=== PATIENT | female | born 1985 | race Caucasian/White ===

== ENCOUNTER → 2019-07-24 | Outpatient (CLI) | payer OTHER ==
[2019-07-24 09:11] LABS: THYROID STIMULATING HORMONE 1.89 uIU/ML (0.358-3.740)
[2019-07-24 09:23] LABS: ESTRADIOL 114.1 PG/ML
[2019-07-24 09:47] LABS: PROGESTERONE 75.78 NG/ML
== END ==
LOC: M LAB 08:01
PROVIDERS: ATTEND Obstetrics & Gynecology Reproductive Endocrinology
DX: E28.9 Ovarian dysfunction, unspecified (principal)

== ENCOUNTER → 2019-07-29 | Outpatient (CLI) | payer OTHER ==
[2019-07-29 10:21] LABS: PROGESTERONE 12.5 NG/ML
== END ==
LOC: M LAB 06:20
PROVIDERS: ATTEND Obstetrics & Gynecology Reproductive Endocrinology
DX: E28.9 Ovarian dysfunction, unspecified (principal)

== ENCOUNTER → 2019-08-01 | Outpatient (CLI) | payer OTHER ==
[2019-08-01 08:06] LABS: THYROID STIMULATING HORMONE 1.82 uIU/ML (0.358-3.740)
[2019-08-01 11:36] LABS: ESTRADIOL 85.3 PG/ML; PROGESTERONE 31.41 NG/ML
== END ==
LOC: M LAB 06:57
PROVIDERS: ATTEND Obstetrics & Gynecology Reproductive Endocrinology
DX: Z32.01 Encounter for pregnancy test, result positive (principal); Z3A.00 Weeks of gestation of pregnancy not specified

== ENCOUNTER → 2019-08-07 | Outpatient (CLI) | payer OTHER ==
[~2019-08-07] MED LIST: ESTR2TAB2; NALT50TA4 PO; PROG1CAP8; prenatal
[2019-08-07 07:44] LABS: THYROID STIMULATING HORMONE 1.95 uIU/ML (0.358-3.740)
--- NOTE | 2019-08-07 07:57 | REPVR ---
PROCEDURE INFORMATION: Exam: US First Trimester, Transabdominal and US Duplex Artery and Vein, Ovaries, Complete Exam date and time: 08/07/2019 7:19 AM Clinical history: 34 years old, female; Screening exam; Routine US, uterus; Additional info: after positive result TECHNIQUE: Imaging protocol: Real-time transabdominal obstetrical ultrasound of the maternal pelvis and a first trimester , less than 14 weeks 0 days, with image documentation. Real-time duplex ultrasound scan of the arterial and venous flow of the ovaries with B-mode, color Doppler flow and spectral waveform analysis, complete duplex. COMPARISON: No relevant prior studies available. FINDINGS: GESTATION: Gestation: Yolk sac is seen. pole is not detected. No heart rate is detected. Heart rate: See Gestation Finding. Placenta: Unremarkable. No subchorionic bleed. Amniotic fluid: Amniotic and chorionic fluid are normal for gestational age. BIOMETRY: Estimated gestational age: 5 week and 2 day gestation by mean sac diameter Mean sac diameter: Intrauterine gestational sac is seen with mean sac diameter of 0.53 cm corresponding to 5 weeks and 2 days gestation. MATERNAL: Uterus: The uterus measures 8.6 x 4.9 x 3.6 cm with no focal uterine mass is seen. Cervix: Unremarkable. Right adnexa: The right ovary measures 4.6 x 3.5 x 1.9 cm. Arterial blood flow seen to the right ovary with peak systolic velocity of 12.7 cm and resistive index of 0.51. 1.7 x 1.4 x 1.4 cm heterogeneous hypoechoic right ovarian lesion seen possibly hemorrhagic cyst. Left adnexa: The left ovary measures 3.4 x 3.5 x 2.9 cm. Arterial blood flow seen to the left ovary with peak systolic velocity of 14.5 cm/s and resistive index of 0.49. : A 1.8 x 1.3 by 1.2 cm hypoechoic follicle/cyst with surrounding vascularity seen possibly corpus luteal cyst. Intraperitoneal: No intraperitoneal free fluid. IMPRESSION: 1. Likely early intrauterine gestational sac with yolk sac seen but no pole or heart rate detected. 2. Mean sac diameter suggests 5 weeks and 2 day gestation. 3. Bilateral possibly hemorrhagic follicular cyst and/or corpus luteal cysts with no sonographic evidence of torsion. 4. Correlate with beta hCG level. Followup is suggested. Electronically signed by: Pedro Flynn On 08/07/2019 07:56:43 AM
[2019-08-07 09:42] LABS: ESTRADIOL 210.4 PG/ML; PROGESTERONE 17.94 NG/ML
== END ==
LOC: M LAB 06:28
PROVIDERS: ATTEND Obstetrics & Gynecology Reproductive Endocrinology
DX: Z32.01 Encounter for pregnancy test, result positive (principal); Z3A.01 Less than 8 weeks gestation of pregnancy

== ENCOUNTER 2019-08-09 22:16 | Emergency (ER) | payer OTHER ==
[~2019-08-09] VITALS: Ht 162.6 cm; Wt 57.7 kg
[2019-08-09 22:16] VITALS: BP 127/65
[2019-08-09] MEDS ORDERED: prenatal (22:25)
[2019-08-09] MEDS ORDERED: PROG1CAP8 (22:25)
[2019-08-09] MEDS ORDERED: ESTR2TAB2 (22:25)
[2019-08-09] MEDS ORDERED: NALT50TA4 PO (22:25)
[2019-08-09 22:54] LABS: BASO % 0.5 % (0.0-1.0); EOS # 0.1 10^3/uL (0.0-0.5); EOS % 1.3 % (0.0-3.0); HEMATOCRIT 39.9 % (36.0-47.0); LYMPH # 2.1 10^3/uL (1.5-5.0); LYMPH % 34.3 % (24.0-44.0); MEAN CORPUSCULAR HEMOGLOBIN 31.5 pg (27.0-33.0); MEAN CORPUSCULAR HGB CONC 35.1 g/dl (32.0-36.5); MEAN CORPUSCULAR VOLUME 89.7 fl (80.0-96.0); MONO # 0.6 10^3/uL (0.0-0.8); MONO % 9.1 % (0.0-5.0); NEUTROPHILS # 3.4 10^3/uL (1.5-8.5); NEUTROPHILS % 54.6 % (36.0-66.0); PLATELET COUNT, AUTOMATED 257 10^3/uL (150-450); RED BLOOD COUNT 4.45 10^6/uL (4.00-5.40); WHITE BLOOD COUNT 6.2 10^3/uL (4.0-10.0)
--- NOTE | 2019-08-09 23:37 | REPVR ---
PROCEDURE INFORMATION: Exam: US First Trimester, Transabdominal Exam date and time: 08/09/2019 10:47 PM Clinical history: 34 years old, female; Lmp or gestational age (in weeks): 07/01/2019; Other: Vaginal bleeding; ; Additional info: Cristina lucasd TECHNIQUE: Imaging protocol: Real-time transabdominal obstetrical ultrasound of the maternal pelvis and a first trimester , less than 14 weeks 0 days, with image documentation. COMPARISON: US GEOTHERMAL INSTALLER 08/07/2019 7:18 AM FINDINGS: GESTATION: Gestation: Gestational sac measuring 8.7 mm. pole is visualized. The exact visualized. Heart rate: No cardiac activity detectable. Placenta: Unremarkable. No subchorionic bleed. Amniotic fluid: Amniotic and chorionic fluid are normal for gestational age. BIOMETRY: Estimated gestational age: Estimated gestational age 5 weeks and 5 days. Estimated due date: Estimated due date 04/05/2020 MATERNAL: Uterus: 8.1 x 4.5 x 5.7 cm retroverted uterus. No masses. Small gestational sac. Cervix: Unremarkable. Right adnexa: Unremarkable. Left adnexa: Unremarkable. Intraperitoneal: No intraperitoneal free fluid. IMPRESSION: Intrauterine gestation with pole measuring 5 weeks and 5 days. Absence of cardiac activity, potentially failure versus too early, recommend followup. Electronically signed by: Lebron Terrell On 08/09/2019 23:37:08 PM
[2019-08-09 23:43] LABS: BLOOD UREA NITROGEN 13 MG/DL (7-18); CALCIUM LEVEL 8.8 MG/DL (8.5-10.1); CARBON DIOXIDE LEVEL 26 MEQ/L (21-32); CHLORIDE LEVEL 108 MEQ/L (98-107); GLOMERULAR FILTRATION RATE > 60.0 (>60); GLUCOSE, FASTING 92 MG/DL (70-100); HCG, SERUM QUANTITATIVE 7942 MIU/ML; POTASSIUM SERUM 4.1 MEQ/L (3.5-5.1); SODIUM LEVEL 140 MEQ/L (136-145)
== END 2019-08-10 00:11 | disposition home or self-care (01) ==
LOC: M ED 22:16
DX: O20.0 Threatened abortion (principal); O99.011 Anemia complicating pregnancy, first trimester; O99.341 Other mental disorders complicating pregnancy, first trimester; F90.9 Attention-deficit hyperactivity disorder, unspecified type; Z91.040 Latex allergy status; Z3A.01 Less than 8 weeks gestation of pregnancy; Z79.899 Other long term (current) drug therapy

== ENCOUNTER → 2019-08-14 | Outpatient (CLI) | payer OTHER ==
[2019-08-14 08:09] LABS: THYROID STIMULATING HORMONE 1.25 uIU/ML (0.358-3.740)
--- NOTE | 2019-08-14 08:17 | REPVR ---
PROCEDURE INFORMATION: Exam: US , Transvaginal Exam date and time: 08/14/2019 7:01 AM Clinical history: 34 years old, female; Screening exam; Other: Number of sac/fetus; ; Additional info: after positive results TECHNIQUE: Imaging protocol: Real-time transvaginal obstetrical ultrasound of the maternal pelvis and a first trimester with image documentation. Transvaginal imaging was used for better evaluation of the fetus and adnexa. COMPARISON: US OB 08/09/2019 10:48 PM FINDINGS: GESTATION: Gestation: Single live intrauterine corresponding with 6 weeks 0 days with estimated delivery of 04/08/20. pole identified measuring 0.4 cm. Gestational sac is measuring 9.3 mm. Heart rate: heart rate is 104 beats per minute. Placenta: No subchorionic hemmorhage. IMPRESSION: Single live intrauterine corresponding with 6 weeks 0 days with estimated delivery of 04/08/20. pole identified measuring 0.4 cm. Gestational sac is measuring 9.3 mm. No subchorionic hemmorhage. Electronically signed by: Swapna Burton On 08/14/2019 08:16:40 AM
[2019-08-14 09:22] LABS: ESTRADIOL 194.4 PG/ML; PROGESTERONE 34.31 NG/ML
== END ==
LOC: M RAD 06:14
PROVIDERS: ATTEND Obstetrics & Gynecology Reproductive Endocrinology
DX: Z32.01 Encounter for pregnancy test, result positive (principal)

== ENCOUNTER 2019-09-28 19:23 | Emergency (ER) | payer OTHER ==
[~2019-09-28] VITALS: Ht 162.6 cm; Wt 57.3 kg
[2019-09-28 20:00] LABS: BASO % 0.3 % (0.0-1.0); EOS # 0.1 10^3/uL (0.0-0.5); EOS % 0.9 % (0.0-3.0); HEMATOCRIT 40.7 % (36.0-47.0); HEMOGLOBIN 14.2 g/dl (12.0-15.5); LYMPH # 2.2 10^3/uL (1.5-5.0); LYMPH % 25.9 % (24.0-44.0); MEAN CORPUSCULAR HEMOGLOBIN 30.3 pg (27.0-33.0); MEAN CORPUSCULAR HGB CONC 34.9 g/dl (32.0-36.5); MONO # 0.6 10^3/uL (0.0-0.8); MONO % 6.5 % (0.0-5.0); NEUTROPHILS # 5.7 10^3/uL (1.5-8.5); NEUTROPHILS % 66.1 % (36.0-66.0); PLATELET COUNT, AUTOMATED 199 10^3/uL (150-450); RED BLOOD COUNT 4.68 10^6/uL (4.00-5.40); WHITE BLOOD COUNT 8.7 10^3/uL (4.0-10.0)
[2019-09-28] MEDS ORDERED: NS 1,000 ML IV ONE (20:15)
--- NOTE | 2019-09-28 20:35 | REPVR ---
PROCEDURE INFORMATION: Exam: US First Trimester, Transabdominal Exam date and time: 09/28/2019 7:58 PM Age: 34 years old Clinical history: Lmp or gestational age (in weeks): 12w 6d; Other: Vaginal bleeding; ; Additional info: Vag bleeding, 13 weeks preg TECHNIQUE: Imaging protocol: Real-time transabdominal obstetrical ultrasound of the maternal pelvis and a first trimester , less than 14 weeks 0 days, with image documentation. COMPARISON: TRANSVAGINAL US 08/14/2019 6:36 AM FINDINGS: GESTATION: Gestation: Single gestational sac in the uterus. Single fetus demonstrated within gestational sac. Brusly-rump length measures 6.5 cm. Heart rate: heart rate is 158 bpm. Placenta: Large subchorionic hemorrhage measures 8.6 x 1.2 x 3.4 cm. Placenta intrinsically unremarkable. Amniotic fluid: Amniotic and chorionic fluid are normal for gestational age. BIOMETRY: Estimated gestational age: Gestational age based on crown-rump length is 12 weeks 6 days versus 13 weeks 1 day using LMP of 06/28/2019. MATERNAL: Uterus: Unremarkable. Cervix: Unremarkable. Right adnexa: Unremarkable. Left adnexa: Unremarkable. Intraperitoneal: No intraperitoneal free fluid. IMPRESSION: 1. Large subchorionic hemorrhage measures 8.6 x 1.2 x 3.4 cm. 2. Otherwise unremarkable gestation at 12 weeks 6 days using ultrasound measurements versus 13 weeks 1 day based on LMP. Detailed structural survey can be performed between 19-20 weeks if clinically desired. Electronically signed by: Mian Williamson On 09/28/2019 20:33:22 PM
[2019-09-28 20:41] LABS: BLOOD UREA NITROGEN 10 MG/DL (7-18); CALCIUM LEVEL 8.9 MG/DL (8.5-10.1); CARBON DIOXIDE LEVEL 26 MEQ/L (21-32); CHLORIDE LEVEL 105 MEQ/L (98-107); CREATININE FOR GFR 0.79 MG/DL (0.55-1.30); GLOMERULAR FILTRATION RATE > 60.0 (>60); GLUCOSE, FASTING 104 MG/DL (70-100); HCG, SERUM QUANTITATIVE 70611 MIU/ML; POTASSIUM SERUM 3.7 MEQ/L (3.5-5.1); SODIUM LEVEL 140 MEQ/L (136-145)
[2019-09-28 23:14] LABS: HEMATOCRIT 35.3 % (36.0-47.0); HEMOGLOBIN 12.3 g/dl (12.0-15.5)
[2019-09-29] MEDS ORDERED: KEFL500C17 PO (00:04)
[2019-09-29 00:16] VITALS: BP 107/58
== END 2019-09-29 00:43 | disposition home or self-care (01) ==
LOC: M ED 19:23
DX: O20.0 Threatened abortion (principal); O26.891 Other specified pregnancy related conditions, first trimester; Z32.01 Encounter for pregnancy test, result positive; O20.8 Other hemorrhage in early pregnancy; Z3A.12 12 weeks gestation of pregnancy; Z87.59 Personal history of other complications of pregnancy, childbirth and the puerperium; Z79.899 Other long term (current) drug therapy; Z91.040 Latex allergy status

== ENCOUNTER → 2019-10-07 | Outpatient (CLI) | payer OTHER ==
[~2019-10-07] MED LIST changes: +KEFL500C17 PO
--- NOTE | 2019-10-07 15:21 | REP ---
Clinical: Follow-up large subchorionic hemorrhage. Comparison: 09/28/2019. Findings: A single live intrauterine is identified. Biometrical measurements correspond to 14 weeks 1 day gestational age with estimated date of delivery 04/05/2020. heart rate equals 150 beats per minute. The cervix is closed and measures 3.8 cm in length. Amniotic fluid volume is subjectively normal. A moderate posterior subchorionic hemorrhage measures 6.9 x 2.1 x 6.8 cm and is relatively similar to prior examination. Impression: 1. Single live early intrauterine at 14 weeks 1 day gestational age. Complete anatomical assessment should be performed at 90-20 weeks. 2. Moderate subchorionic hemorrhage similar to prior examination. Electronically Signed by Charles Verma MD 10/07/2019 03:11 P
== END ==
LOC: M RAD 14:27
PROVIDERS: ATTEND Advanced Practice Midwife
DX: O41.8X10 Other specified disorders of amniotic fluid and membranes, first trimester, not applicable or unspecified (principal); Z3A.14 14 weeks gestation of pregnancy

== ENCOUNTER → 2019-10-15 | Outpatient (CLI) | payer OTHER ==
[2019-10-15 13:57] LABS: BASO % 0.1 % (0.0-1.0); EOS % 0.6 % (0.0-3.0); HEMATOCRIT 39.8 % (36.0-47.0); HEMOGLOBIN 13.6 g/dl (12.0-15.5); LYMPH # 1.3 10^3/uL (1.5-5.0); LYMPH % 17.7 % (24.0-44.0); MEAN CORPUSCULAR HEMOGLOBIN 30.7 pg (27.0-33.0); MEAN CORPUSCULAR HGB CONC 34.2 g/dl (32.0-36.5); MEAN CORPUSCULAR VOLUME 89.8 fl (80.0-96.0); MONO # 0.5 10^3/uL (0.0-0.8); MONO % 6.4 % (0.0-5.0); NEUTROPHILS # 5.3 10^3/uL (1.5-8.5); NEUTROPHILS % 74.9 % (36.0-66.0); PLATELET COUNT, AUTOMATED 196 10^3/uL (150-450); RED BLOOD COUNT 4.43 10^6/uL (4.00-5.40); WHITE BLOOD COUNT 7.1 10^3/uL (4.0-10.0)
[2019-10-15 17:01] LABS: CHLAMYDIA DNA AMPLIFICATION NEGATIVE (NEGATIVE); GC DNA AMPLIFICATION NEGATIVE (NEGATIVE)
[2019-10-18 11:01] LABS: HEPATITIS C VIRUS ABY INDEX 0.2 INDEX (<0.8); HIV 1&2 SCREEN CENTAUR NEGATIVE (NEGATIVE); RUBELLA IgG QUALITATIVE IMMUNE (IMMUNE)
== END ==
LOC: M PLALAB 08:47
PROVIDERS: ATTEND Obstetrics & Gynecology
DX: O46.8X1 Other antepartum hemorrhage, first trimester (principal); Z3A.00 Weeks of gestation of pregnancy not specified

== ENCOUNTER → 2019-11-04 | Outpatient (CLI) | payer OTHER ==
--- NOTE | 2019-11-05 02:36 | REP ---
Clinical: Anatomical evaluation. Comparison: 10/07/2019 . Findings: Examination demonstrates a single live intrauterine in transverse (head to maternal right) presentation. motion is identified by technologist. Placenta is noted anterior and grade zero without evidence for placenta previa or abruption. Amniotic fluid volume is normal. Cervix measures 3.9 cm in length and appears closed. No evidence for nuchal cord. There is evidence for subchorionic hemorrhage as previously noted. Gestational age by LMP 18 weeks 3 days with REBECCA 04/15/2020 . Gestational age by current measurements 18 weeks 0 days with REBECCA 04/18/2020 . FHR equals 130 beats per minute. BPD 4.3 cm 19 weeks 0 days HC 15.4 cm 18 weeks 3 days AC 12.0 cm 17 weeks 5 days FL 2.4 cm 17 weeks 2 days HL 2.4 cm 17 weeks 3 days HC/AC ratio 1.28 Estimated weight 202 grams ( 46th percentile based on age by first ultrasound; 20th percentile based on age by LMP ). Anatomical assessment demonstrates normal structures including cranium, cerebellum/posterior fossa, lungs, four-chamber heart, diaphragm, stomach, cord insertion/three-vessel cord, kidneys/bladder, and extremities. Abnormal thoracic vertebral body suggesting hemivertebra cannot be excluded along with possibility of cleft lip (facial features are incompletely evaluated). Incomplete evaluation of the cord plexus, cavum, and cardiac ventricular outflow tracts are also noted. Impression: 1. Single live intrauterine in transverse lie demonstrating appropriate interval growth. 2. Anatomical limitations and questionable findings as noted above warrant reevaluation and follow-up. 3. Subchorionic hemorrhage again noted.
== END ==
LOC: M WHC 08:05
PROVIDERS: ATTEND Advanced Practice Midwife
DX: Z34.92 Encounter for supervision of normal pregnancy, unspecified, second trimester (principal)

== ENCOUNTER → 2019-11-05 | Outpatient (REF) | payer OTHER | LOC: M SFHCWAGY 16:50 | PROVIDERS: ATTEND Advanced Practice Midwife | DX: R30.0 Dysuria (principal) ==

== ENCOUNTER → 2021-06-15 | Outpatient (REF) | payer OTHER | LOC: M LAB REF 16:55 | PROVIDERS: ATTEND Family Medicine | DX: R10.2 Pelvic and perineal pain (principal); N76.0 Acute vaginitis ==

== ENCOUNTER → 2022-04-15 | Outpatient (CLI) | payer OTHER ==
[~2022-04-15] MED LIST changes: -ESTR2TAB2; +ESTR2TAB3
[2022-04-15 10:11] LABS: BASO % 0.4 % (0.0-1.0); EOS # 0.1 10^3/uL (0.0-0.5); EOS % 1.5 % (0.0-3.0); HEMATOCRIT 39.2 % (36.0-47.0); HEMOGLOBIN 13.1 g/dl (12.0-15.5); LYMPH # 1.2 10^3/uL (1.5-5.0); MEAN CORPUSCULAR HEMOGLOBIN 29.1 pg (27.0-33.0); MEAN CORPUSCULAR HGB CONC 33.4 g/dl (32.0-36.5); MEAN CORPUSCULAR VOLUME 87.1 fl (80.0-96.0); MONO # 0.4 10^3/uL (0.0-0.8); MONO % 8.7 % (2.0-8.0); NEUTROPHILS # 2.9 10^3/uL (1.5-8.5); NEUTROPHILS % 62.2 % (36.0-66.0); PLATELET COUNT, AUTOMATED 205 10^3/uL (150-450); WHITE BLOOD COUNT 4.6 10^3/uL (4.0-10.0)
[2022-04-15 11:08] LABS: ALBUMIN 4.4 GM/DL (3.2-5.2); ALT/SGPT 23 U/L (12-78); BLOOD UREA NITROGEN 11 MG/DL (7-18); CALCIUM LEVEL 9.3 MG/DL (8.5-10.1); CARBON DIOXIDE LEVEL 28 MEQ/L (21-32); CHLORIDE LEVEL 106 MEQ/L (98-107); CREATININE FOR GFR 0.95 MG/DL (0.55-1.30); FREE T4 1.16 NG/DL (0.76-1.46); GLOMERULAR FILTRATION RATE > 60.0 (>60); GLUCOSE, FASTING 76 MG/DL (70-100); POTASSIUM SERUM 4.3 MEQ/L (3.5-5.1); SODIUM LEVEL 139 MEQ/L (136-145)
[2022-04-15 11:40] LABS: TOTAL 25(OH) VITAMIN D 26.2 NG/ML (30.0-100.0); VITAMIN B12 LEVEL 265 PG/ML
[2022-04-15 11:41] LABS: FOLATE 9.6 NG/ML
== END ==
LOC: M LAB 09:04
PROVIDERS: ATTEND Physician Assistant
DX: E55.9 Vitamin D deficiency, unspecified (principal); F90.0 Attention-deficit hyperactivity disorder, predominantly inattentive type; Z13.29 Encounter for screening for other suspected endocrine disorder

== ENCOUNTER 2022-06-10 15:11 | Outpatient (RCR) | payer OTHER | END 2022-06-15 | LOC: M PT 15:11 | PROVIDERS: ATTEND Physician Assistant | DX: S29.012A Strain of muscle and tendon of back wall of thorax, initial encounter (principal); W18.30XA Fall on same level, unspecified, initial encounter; Y92.009 Unspecified place in unspecified non-institutional (private) residence as the place of occurrence of the external cause ==

== ENCOUNTER → 2022-09-07 | Outpatient (CLI) | payer OTHER ==
[2022-09-07 14:49] LABS: BASO % 0.6 % (0.0-1.0); EOS # 0.1 10^3/uL (0.0-0.5); EOS % 1.5 % (0.0-3.0); HEMATOCRIT 41.5 % (36.0-47.0); HEMOGLOBIN 13.1 g/dl (12.0-15.5); LYMPH # 1.4 10^3/uL (1.5-5.0); LYMPH % 26.1 % (24.0-44.0); MEAN CORPUSCULAR HEMOGLOBIN 27.6 pg (27.0-33.0); MEAN CORPUSCULAR HGB CONC 31.6 g/dl (32.0-36.5); MEAN CORPUSCULAR VOLUME 87.6 fl (80.0-96.0); MONO # 0.4 10^3/uL (0.0-0.8); MONO % 7.4 % (2.0-8.0); NEUTROPHILS # 3.3 10^3/uL (1.5-8.5); PLATELET COUNT, AUTOMATED 228 10^3/uL (150-450); RED BLOOD COUNT 4.74 10^6/uL (4.00-5.40); WHITE BLOOD COUNT 5.2 10^3/uL (4.0-10.0)
[2022-09-07 21:08] LABS: ALBUMIN 4.2 G/DL (3.2-5.2); ALT/SGPT 32 U/L (7.0-40); BILIRUBIN,TOTAL 0.5 MG/DL (0.3-1.2); BLOOD UREA NITROGEN 11 MG/DL (9-23); CALCIUM LEVEL 9.3 MG/DL (8.5-10.1); CARBON DIOXIDE LEVEL 27 MMOL/L (20-31); CHLORIDE LEVEL 103 MMOL/L (98-107); CREATININE FOR GFR 0.73 MG/DL (0.55-1.30); GLOMERULAR FILTRATION RATE > 60.0 (>60); GLUCOSE, FASTING 87 MG/DL (60-100); POTASSIUM SERUM 4.3 MMOL/L (3.5-5.1); SODIUM LEVEL 139 MMOL/L (136-145); TOTAL 25(OH) VITAMIN D 22.4 NG/ML (20.0-100.0); TOTAL PROTEIN 7.5 G/DL (5.7-8.2); VITAMIN B12 LEVEL 298 PG/ML (211-911)
== END ==
LOC: M LAB 13:50
PROVIDERS: ATTEND Physician Assistant
DX: E55.9 Vitamin D deficiency, unspecified (principal); D51.9 Vitamin B12 deficiency anemia, unspecified

== ENCOUNTER → 2023-06-30 | Outpatient (CLI) | payer OTHER | LOC: M WHC 13:07 | PROVIDERS: ATTEND Nurse Practitioner Family | DX: N92.0 Excessive and frequent menstruation with regular cycle (principal); E04.1 Nontoxic single thyroid nodule ==

== ENCOUNTER → 2023-07-04 | Outpatient (CLI) | payer OTHER | LOC: M PLALAB 13:23 | PROVIDERS: ATTEND Nurse Practitioner Family | DX: Z80.3 Family history of malignant neoplasm of breast (principal) ==

== ENCOUNTER → 2023-09-21 | Outpatient (REF) | payer OTHER ==
[2023-09-21 16:06] LABS: CHLAMYDIA DNA AMPLIFICATION NEGATIVE (NEGATIVE); GC DNA AMPLIFICATION NEGATIVE (NEGATIVE)
== END ==
LOC: M SFHCWAGY 13:13
PROVIDERS: ATTEND Nurse Practitioner Family
DX: N93.0 Postcoital and contact bleeding (principal)
CPT/HCPCS: 87070; 87624; 87661; 87810; 87850; G0123